=== PATIENT | female | born 1945 | race Caucasian/White ===

== ENCOUNTER 2021-12-20 09:30 | Outpatient (RCR) | payer SELFPAY ==
[2021-12-13 09:10] VITALS: BP 156/47; PULSE 81; RESP 20; TEMP 36.4; BMI 30.7
--- NOTE | 2021-12-13 12:25 | HP.PCM_ITS ---
History of Present Illness Date of Service: 12/13/21 Chief Complaint: Non healing left leg wound History of Wound: Ms. Hurley presents to the wound center following referral from her PCP due to non healing left leg wound. Sustained the wound about 3 months ago when she bumped into her dishwater. Following injury, she was seen by her PCP and started on antibiotics however, this did not help. She was also seen at the ER and had an I and D with subsequent packing of the wound with no eventual healing. Lately, she states that she has been applying bacitracin ointment daily. No significant drainage. Tested for Diabetes and this came back negative. No tobacco abuse. She feels well otherwise and denies chills, fever, nausea or change in bowel habit. She is independent of her daily activities. [facility] Medical History (Updated 12/13/21 @ 12:[address] Lena Becerra MD) Chronic wound of extremity Leg wound, left Non-healing wound of left lower extremity Home Medications esomeprazole magnesium [Nexium] 20 mg PO DAILY 12/13/21 [History Last Taken Unknown] fluticasone propionate INTRANASAL 12/13/21 [History Last Taken Unknown] Allergy/AdvReac Type Severity Reaction Status Date / Time cephalexin [From Keflex] Allergy Shortness Verified 12/13/21 09:36 of breath amoxicillin [From Augmentin] AdvReac Nausea Verified 12/13/21 09:35 clavulanic acid AdvReac Nausea Verified 12/13/21 09:35 [From Augmentin] guaifenesin [From Entex LA] AdvReac Nausea Verified 12/13/21 09:36 phenylephrine [From Entex LA] AdvReac Nausea Verified 12/13/21 09:36 phenylpropanolamine AdvReac Nausea Verified 12/13/21 09:36 [From Entex LA] Social History Smoking Status: Never smoker ROS Constitutional Constitutional: Denies fatigue, fever(s), frequent falls, headache(s) or increased appetite Eyes Eyes: Denies blindness, decreased night vision, diplopia, discharge from eye(s), exophthalmos, eye pain or floaters ENT HEENT: Denies epistaxis, facial pain, foreign body in nose, headache(s), hearing loss, hoarseness, mouth pain or nasal trauma Cardiovascular Cardiovascular: Denies chest pain with activity, claudication, cold extremities, cyanosis, dyspnea at rest, dyspnea on exertion or easily tiring during activity Respiratory/Chest Respiratory/Chest: Denies change in phlegm color, dry cough, dusky skin, dyspnea, dyspnea on exertion, excessive phlegm production or nail bed cyanosis Gastrointestinal Gastrointestinal: Denies abdominal pain, belching, chewing difficulty, coffee ground emesis, constipation, cramping, dyspepsia or dysphagia Genitourinary Genitourinary: Denies abdominal discomfort, dysuria, flank pain, hematuria or oliguria Musculoskeletal Musculoskeletal: Denies extremity pain, limited range of motion, loss of height, muscle cramps, muscle spasms or muscle weakness Integumentary Integumentary: Reports non-healing lesions; Denies changing lesions, dry skin, erythema, jaundice, lesions, nail changes or new lesions Neurologic Neurologic: Denies abnormal speech, behavior changes, burning sensations, frequent falls, headache(s), lack of coordination, loss of vision or memory loss Psychiatric Psychiatric: Denies change in appetite, cognitive impairment, confusion, depression, difficulty concentrating, hallucinations or homicidal ideation Endocrine Endocrinology: Denies excessive sweating, fatigue, flushing, heat intolerance, palpitations or polydipsia Hematologic/Lymphatic Hematologic/Lymphatic: Denies anemia, easy bleeding, easy bruising or lymphadenopathy Allergic/Immunologic Allergic/Immunologic: Denies itchy eyes, lip swelling, tongue swelling, hives, urticaria, eczemia, wheezing or asthma Vital Signs Vital Signs Vital Signs: 12/13/21 09:10 Temperature 97.5 F L Temperature Source Temporal Pulse Rate 81 Respiratory Rate 20 H Blood Pressure 156/47 H Blood Pressure Mean 83 Blood Pressure Source Monitor Weight Weight: 152 lb 1.642 oz Body Mass Index (BMI) 30.7 Physical Exam Const alert, oriented x3 and no apparent distress General Appearance: cooperative, comfortable and well kempt HEENT normocephalic, head/scalp atraumatic and hearing grossly normal bilaterally Head and Scalp: normal to inspection Face and Sinus: normal facial exam Eyes PERRL and EOMs intact bilaterally Neck full ROM General: normal visual inspection Resp normal respiratory effort and clear to auscultation bilaterally Effort and Inspection: able to speak in complete sentences Cardio regular rate, regular rhythm, S1 normal heart sound and S2 normal heart sound GI Palpation: soft Skin Wounds: wounds noted Neuro oriented x3, CN's II-XII intact bilaterally, moves all extremities and no focal motor deficits Psych mental status grossly normal Appearance: grossly normal Attitude: calm Speech: normal speech Debridement Note Debridement Note Wound debrided: Left Lower Extremity Type of Debridement: Excisional debridement Anesthesia Used: 4% Lidocaine Solution Depth: Down to and including healthy tissue and in the subcutaneous layer Percentage of wound debrided: 100 Instrument Used: 3mm curette Tissue Removed: Slough and devitalized tissue Severity: Fat Layer Exposed Amount of bleeding with debridement: Mild Bleeding Controlled with: Pressure Patient tolerated procedure: Patient tolerated procedure well Post-Debridement Measurements and Additional Note: Post-Debridement Measurements/Treatment - Nurse 1 - General Ulcer Assessment Start: 12/13/21 09:10 Freq: Status: Active Protocol: PEG Activity Type Activity Date Activity User E-Sign Co-Sign Detail Recorded Client Recorded Date Recorded By Document 12/13/21 09:10 DL [id number] 12/13/21 09:30 DL 12/13/21 09:10 - Today's Visit Information Type of service Initial Visit Arrival Mode Ambulatory Transfer Assistance None Patient Identification Verified (Name & Yes ) Patient Requires Transmission-Based No Precautions Height and Weight Height 4 ft 11 in Weight 152 lb 1.642 oz Weight in Pounds 152.1 lbs Body Mass Index (BMI) 30.7 BMI Classification Obese BSA - Alvina 1.64 Vital Signs Temperature (97.8 F-99.1 F) 97.5 F L Temperature Source Temporal Pulse Rate (60-100) 81 Pulse Location Monitor Respiratory Rate (12-18) 20 H Respiratory rate source Observation Blood Pressure (90/60-120/80) 156/47 H Blood Pressure Mean 83 Source Monitor History Since Last Visit- (Skip if this is Patient's initial visit) Left Footwear Regular Shoe Right Footwear Regular Shoe Pain Scale: 0-10 Numeric Is Patient Pain Free? Yes Lower Extremity Assessment/ Foot Assessment/ Toe Nail Assessment Left -Posterior Tibial Palpable Yes -Posterior Tibial Doppler Multiphasic -Dorsalis Pedis Palpable Yes -Dorsalis Pedis Doppler Multiphasic -Extremity Color Normal -Hair Growth on Legs No -Hair Growth on Toes No -Temperature of Extremity Warm -Capillary Refill Less than 3 Seconds -Dependent Rubor No -Blanched when Elevated No -Lipodermatosclerosis No -Thick No -Discolored No -Deformed No -Improper Length & Hygeine No Right -Posterior Tibial Palpable Yes -Posterior Tibial Doppler Multiphasic -Dorsalis Pedis Palpable Yes -Dorsalis Pedis Doppler Multiphasic -Extremity Color Normal -Hair Growth on Legs No -Hair Growth on Toes No -Temperature of Extremity Warm -Capillary Refill Less than 3 Seconds -Dependent Rubor No -Blanched when Elevated No -Lipodermatosclerosis No -Other Deformity No -Prior Foot Ulcer No -Charcot Joint No -Prior Amputation No -Thick No -Discolored No -Deformed No -Improper Length & Hygeine No Neuropathy Assessment Feet - Top Side and Bottom <Entered> (a) Communication Assessment Preferred language Maltese 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 No Able to Read Yes Able to Write Yes Communication Tools None Right Hearing Abillity Normal Left Hearing Abillity Normal Visual Assistive Devices Glasses Teaching Assessment Preferences Verbal,Written, Demonstration Barriers to Learning None Readiness To Learn Good Willingness to Engage in Self Management Med Activies Readiness to Engage in Self Management Med Activities Anxiety Level Calm Cooperation Cooperative Perception Coherent Interest in Health Problem Asks Questions Education Importance Acknowledges Need Does Patient Smoke tobacco or other No substances Smoking Status Never smoker Is Patient Diabetic No Functional Assessment Recent Decline in Ability to Perform Denies Any Declines 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 Shothole Driller to contact place of protestant No Teaching: Wound Center Discharge Instructions -Person Taught Patient,Family Dressing Your Wound -Person Taught Patient,Family *Welcome to the Wound Center -Person Taught Patient,Family (a) 1 - + WC - Nurse 1 - General Ulcer Measurement Start: 12/13/21 09:10 Freq: Status: Active Protocol: Activity Type Activity Date Activity User E-Sign Co-Sign Detail Recorded Client Recorded Date Recorded By Document 12/13/21 09:10 DL [id number] 12/13/21 09:30 DL 12/13/21 09:10 Wound Center Nurse 1 #1 L Glover -Current Size (cm) - Length 1.4 -Current Size (cm) - Width 2.8 -Current Size (cm) - Depth 0.1 -Total Square Cm 3.92 -Photo Taken Yes -Exudate Amt Small -Exudate Type Serosanguineous -Wound Margin Distinct, Outline Attached -Granulation Amt None Present (0 %) -Necrosis Amt Large (67-100%) -Necrotic Tissue Type Adherent Slough -Structure Exposed N/A -Texture (Katie-wound Skin Appearance) Localized Edema ,Scarring -Moisture (Katie-wound Skin Appearance) No Abnormality -Color (Katie-wound Skin Appearance) Erythema -Temperature (Katie-wound Skin No Abnormality Appearance) (Pt Warm) -Tenderness on Palpation (Katie-wound Yes Skin Appearance) -Ulcer Cleansing Soap and Water -Foul Odor after Cleansing No -Anesthetic Used 5% Lidocaine Gel Right Calf (cm) 39.5 Right Ankle (cm) 21 Right Foot (cm) 38.5 Left Calf (cm) 20.5 WC - Nurse 2 - General Ulcer CM Notes Start: 12/13/21 09:10 Freq: Status: Active Protocol: Activity Type Activity Date Activity User E-Sign Co-Sign Detail Recorded Client Recorded Date Recorded By Document 12/13/21 09:55 MW [id number] 12/13/21 10:03 MW 12/13/21 09:55 Wound Center Nurse 2 #1 L Glover -Time 09:55 -Correct Patient Yes -Correct Side, Site, Position Yes -Correct Procedure Yes -Procedure Performed Yes -Type of Procedure Debridement -Clinical Debridement Subcutaneous -Tissue Removed Subcutaneous -Post Debridement (cm) - Length 0.3 -Post Debridement (cm) - Width 0.6 -Post Debridement (cm) - Depth 0.7 -Total Square (Post) (cm) 0.18 -Area of Debridement (cm) - Length 0.3 -Area of Debridement (cm) - Width 0.6 -Total Square (Area) (cm) 0.18 -Tunneling No -Undermining/Tunneling No -Circular Undermining No -Wound/Ulcer Outcome Not Healed -Ulcer Cleansing Rinsed/ Irrigated with Saline -Foul Odor after Cleansing No -Bioengineered Tissue No -Bleeding Controlled with Pressure -Offloading No -Treatment Response Procedure Tolerated Well -Debridement - Subq, 1st 20sq cm Yes Pain Scale: 0-10 Numeric Is Patient Pain Free? Yes BAN - Nurse 3 - General Ulcer D/C NN Start: 12/13/21 09:10 Freq: Status: Active Protocol: Activity Type Activity Date Activity User E-Sign Co-Sign Detail Recorded Client Recorded Date Recorded By Document 12/13/21 10:23 DL [id number] 12/13/21 10:24 DL 12/13/21 10:23 Wound Care Nurse 3 #1 L Glover -Ulcer Cleansing Rinsed/ Irrigated with Saline -Foul Odor after Cleansing No -Primary Dressing Applied NonAdherent Contact Layer, Promogran -Primary Dressing Covered/Secured with Dry Gauze -Promogran 1 Left -Multi-Layered Wrap Application Multi-Layer Comp - Left ($) Pain Scale: 0-10 Numeric Is Patient Pain Free? Yes WC - Visit Discharge Discharge Condition Stable Ambulatory Status Ambulatory Transportation Private Auto Accompanied by family Charges/Coding Visit Charges Office Visits / Consults: 53069 OV L3 New Procedures Integumentary [id number]: [id number] Aria subq tissue 20 sq cm/< Assessment/Plan Assessment/Plan (1) Leg wound, left: CODE(S): S81.802A - Unspecified open wound, left lower leg, initial encounter QUALIFIERS: Encounter type: initial encounter Qualified Code(s): S81.802A - Unspecified open wound, left lower leg, initial encounter (2) Non-healing wound of left lower extremity: CODE(S): S81.802A - Unspecified open wound, left lower leg, initial encounter (3) Chronic wound of extremity: PLAN: 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 As above, measures so far have not been helpful. Debridement done as documented above, procedure was well tolerated. She reports difficulty with doing wound care herself. Apply Promogran, cover with gauze. Leave in place till Friday. 3M wrap for edema management. Change on Friday at nurse visit. Increase Protein, Vitamin C and Zinc recommended. Leg elevation and exercise as tolerated. Her questions were answered and she was advised to call with any further questions or concerns. Follow up in 1 week with me. This note was generated with 1SDK dictation software. It may contain incorrect words, spelling, and punctuation that were not noted in checking the note before signing.
[2021-12-18 14:03] VITALS: BP 123/63; PULSE 71; TEMP 36.8; BMI 30.7
[2021-12-20 09:32] VITALS: BP 164/73; PULSE 76; RESP 16; TEMP 35.5; BMI 30.7
--- NOTE | 2021-12-20 10:32 | PCM.WC.PN ---
History of Present Illness Date of Service: 12/20/21 Chief Complaint: Non healing left leg wound History of Wound: Ms. Hurley presents to the wound center following referral from her PCP due to non healing left leg wound. Sustained the wound about 3 months ago when she bumped into her dishwater. Following injury, she was seen by her PCP and started on antibiotics however, this did not help. She was also seen at the ER and had an I and D with subsequent packing of the wound with no eventual healing. Lately, she states that she has been applying bacitracin ointment daily. No significant drainage. Tested for Diabetes and this came back negative. No tobacco abuse. She feels well otherwise and denies chills, fever, nausea or change in bowel habit. She is independent of her daily activities. Progress of Wound: No new concerns at this time. Promogran has been applied with 3M wraps. Came in on Friday for a nurse visit. Subjective Subjective She denies any acute concerns. No chills, fever or feeling of unwell. Objective Data Objective Data Vital Signs: Vital Signs Temp Pulse Resp BP 96 F L 76 16 164/73 H 12/20/21 09:32 12/20/21 09:32 12/20/21 09:32 12/20/21 09:32 Oxygen Delivery Method Room Air Weight: 152 lb 1.642 oz Body Mass Index (BMI) 30.7 Charges/Coding Procedures Integumentary 111xxx-113xx: 76921 Aria subq tissue 20 sq cm/< Physical Exam Const alert, oriented x3 and no apparent distress General Appearance: cooperative, comfortable and well kempt HEENT normocephalic, head/scalp atraumatic and hearing grossly normal bilaterally Head and Scalp: normal to inspection Face and Sinus: normal facial exam Eyes PERRL and EOMs intact bilaterally Neck full ROM General: normal visual inspection Resp normal respiratory effort Effort and Inspection: able to speak in complete sentences Skin Wounds: wounds noted Neuro oriented x3, CN's II-XII intact bilaterally, moves all extremities and no focal motor deficits Psych mental status grossly normal Appearance: grossly normal Attitude: calm Speech: normal speech Debridement Note Debridement Note Wound debrided: Left lower extremity Type of Debridement: Excisional debridement Anesthesia Used: 4% Lidocaine Solution Depth: Down to and including healthy tissue Percentage of wound debrided: 100 Instrument Used: - (1 mm) Tissue Removed: Slough and devitalized tissue Severity: Fat Layer Exposed Amount of bleeding with debridement: Mild Bleeding Controlled with: Pressure Patient tolerated procedure: Patient tolerated procedure well Post-Debridement Measurements and Additional Note: Post-Debridement Measurements/Treatment WC - Nurse 1 - General Ulcer Assessment Start: 12/13/21 09:10 Freq: Status: Active Protocol: WC.LOWEXNeisha Activity Type Activity Date Activity User E-Sign Co-Sign Detail Recorded Client Recorded Date Recorded By Document 12/13/21 09:10 DL [id number] 12/13/21 09:30 DL Document 12/18/21 14:03 AK [id number] 12/18/21 14:05 AK Document 12/20/21 09:32 BMF [id number] 12/20/21 09:36 BMF 12/13/21 12/18/21 12/20/21 09:10 14:03 09:32 WC - Today's Visit Information Type of service Initial Visit Nurse-only Follow-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 ) Arrival Mode Ambulatory Ambulatory Ambulatory Transfer Assistance None None Patient Identification Verified (Name & Yes Yes Yes ) Patient Requires Transmission-Based No No No Precautions Height and Weight Height 4 ft 11 in Weight 152 lb 1.642 oz Weight in Pounds 152.1 lbs Body Mass Index (BMI) 30.7 30.7 30.7 BMI Classification Obese Obese Obese BSA - Alvina 1.64 Vital Signs Temperature (97.8 F-99.1 F) 97.5 F L 98.2 F 96 F L Temperature Source Temporal Temporal Temporal Pulse Rate (60-100) 81 71 76 Pulse Location Monitor Monitor Monitor Respiratory Rate (12-18) 20 H 16 Respiratory rate source Observation Observation Oxygen Delivery Method Room Air Blood Pressure (90/60-120/80) 156/47 H 123/63 H 164/73 H Blood Pressure Mean (mm Hg) 83 83 103 Source Monitor Monitor Monitor Position Sitting Blood Pressure Location Left Arm Comment counseled pt to f/u w/ pcp r/t bp. Have you changed medications since your No No last visit? Any new allergies or adverse reactions No No Had a fall/change in ADL's that may No No increase risk of falls Signs or symptoms of abuse and/or No No neglect since last visit Have you been in the hospital since your No No last visit? Has dressing in place as prescribed Yes No Has compression in place as prescribed Yes No Has offloadiing in place as prescribed N/A N/A Experienced any changes in pain level or No No management History Since Last Visit- (Skip if this is Patient's initial visit) Left Footwear Regular Shoe Regular Shoe Regular Shoe Right Footwear Regular Shoe Regular Shoe Regular Shoe Pain Scale: 0-10 Numeric Is Patient Pain Free? Yes Yes Yes Lower Extremity Assessment/ Foot Assessment/ Toe Nail Assessment Left -Posterior Tibial Palpable Yes -Posterior Tibial Doppler Multiphasic -Dorsalis Pedis Palpable Yes -Dorsalis Pedis Doppler Multiphasic -Extremity Color Normal -Hair Growth on Legs No -Hair Growth on Toes No -Temperature of Extremity Warm -Capillary Refill Less than 3 Seconds -Dependent Rubor No -Blanched when Elevated No -Lipodermatosclerosis No -Thick No -Discolored No -Deformed No -Improper Length & Hygeine No Right -Posterior Tibial Palpable Yes -Posterior Tibial Doppler Multiphasic -Dorsalis Pedis Palpable Yes -Dorsalis Pedis Doppler Multiphasic -Extremity Color Normal -Hair Growth on Legs No -Hair Growth on Toes No -Temperature of Extremity Warm -Capillary Refill Less than 3 Seconds -Dependent Rubor No -Blanched when Elevated No -Lipodermatosclerosis No -Other Deformity No -Prior Foot Ulcer No -Charcot Joint No -Prior Amputation No -Thick No -Discolored No -Deformed No -Improper Length & Hygeine No Neuropathy Assessment Feet - Top Side and Bottom <Entered> (a) Communication Assessment Preferred language [place] Nut 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 Operator Required No Able to Read Yes Able to Write Yes Communication Tools None Right Hearing Abillity Normal Left Hearing Abillity Normal Visual Assistive Devices Glasses Teaching Assessment Preferences Verbal,Written, Demonstration Barriers to Learning None Readiness To Learn Good Willingness to Engage in Self Management Med Activies Readiness to Engage in Self Management Med Activities Anxiety Level Calm Cooperation Cooperative Perception Coherent Interest in Health Problem Asks Questions Education Importance Acknowledges Need Does Patient Smoke tobacco or other No substances Smoking Status Never smoker Is Patient Diabetic No Functional Assessment Recent Decline in Ability to Perform Denies Any Declines Culture/Mu-Ism/Hand Ii Tube Bender Cultural/Mu-Ism Needs that may affect No Treatment Plan Would you allow our hospital marketing intelligence analyst to No meet you for the purpose of spiritual/ emotional support? Hand Ii Tube Bender to contact place of congregational No Teaching: Wound Center Discharge Instructions -Person Taught Patient,Family Dressing Your Wound -Person Taught Patient,Family *Welcome to the Wound Center -Person Taught Patient,Family (a) 1 - + WC - Nurse 1 - General Ulcer Measurement Start: 12/13/21 09:10 Freq: Status: Active Protocol: Activity Type Activity Date Activity User E-Sign Co-Sign Detail Recorded Client Recorded Date Recorded By Document 12/13/21 09:10 DL [id number] 12/13/21 09:30 DL Document 12/20/21 09:32 BM [id number] 12/20/21 09:36 BMF 12/13/21 12/20/21 09:10 09:32 Wound Center Nurse 1 #1 L Glover -Combined with other wound No -Current Size (cm) - Length 1.4 0.3 -Current Size (cm) - Width 2.8 0.4 -Current Size (cm) - Depth 0.1 0.1 -Total Square Cm 3.92 0.12 -Photo Taken Yes No -Epithelialization None Present -Tunneling No -Undermining/Tunneling No -Circular Undermining No -Exudate Amt Small None Present -Exudate Type Serosanguineous -Wound Margin Distinct, Distinct, Outline Outline Attached Attached -Granulation Amt None Present (0 None Present (0 %) %) -Slough/Fibrin Yes -Necrosis Amt Large (67-100%) Large (67-100%) -Necrotic Tissue Type Adherent Slough Eschar -Structure Exposed N/A -Texture (Katie-wound Skin Appearance) Localized Edema Assessed, ,Scarring Scarring -Moisture (Katie-wound Skin Appearance) No Abnormality Assessed -Color (Katie-wound Skin Appearance) Erythema Assessed -Temperature (Katie-wound Skin No Abnormality No Abnormality Appearance) (Pt Warm) (Pt Warm) -Tenderness on Palpation (Katie-wound Yes No Skin Appearance) -Ulcer Cleansing Soap and Water Rinsed/ Irrigated with Saline -Foul Odor after Cleansing No No -Anesthetic Used 5% Lidocaine 4% Lidocaine Gel Solution -Wound Comment(s) pt showered and removed 3m prior to visit per instruction Lower Limb Edema Present Yes Right Calf (cm) 39.5 Right Ankle (cm) 21 Right Foot (cm) 38.5 Left Calf (cm) 20.5 39.6 Left Ankle (cm) 23.5 WC - Nurse 2 - General Ulcer CM Notes Start: 12/13/21 09:10 Freq: Status: Active Protocol: Activity Type Activity Date Activity User E-Sign Co-Sign Detail Recorded Client Recorded Date Recorded By Document 12/13/21 09:55 MW [id number] 12/13/21 10:03 MW Document 12/20/21 09:53 MW [id number] 12/20/21 09:57 MW 12/13/21 12/20/21 09:55 09:53 Wound Center Nurse 2 #1 L Glover -Time 09:55 09:54 -Correct Patient Yes Yes -Correct Side, Site, Position Yes Yes -Correct Procedure Yes Yes -Procedure Performed Yes Yes -Type of Procedure Debridement Debridement -Clinical Debridement Subcutaneous Subcutaneous -Tissue Removed Subcutaneous Subcutaneous -Post Debridement (cm) - Length 0.3 0.1 -Post Debridement (cm) - Width 0.6 0.3 -Post Debridement (cm) - Depth 0.7 0.7 -Total Square (Post) (cm) 0.18 0.03 -Area of Debridement (cm) - Length 0.3 0.1 -Area of Debridement (cm) - Width 0.6 0.3 -Total Square (Area) (cm) 0.18 0.03 -Tunneling No No -Undermining/Tunneling No No -Circular Undermining No No -Wound/Ulcer Outcome Not Healed Not Healed -Ulcer Cleansing Rinsed/ Rinsed/ Irrigated with Irrigated with Saline Saline -Foul Odor after Cleansing No No -Bioengineered Tissue No No -Bleeding Controlled with Pressure Pressure -Offloading No -Type of Offloading Total Contact Cast (TCC) - Left ($) -Treatment Response Procedure Procedure Tolerated Well Tolerated Well -Debridement - Subq, 1st 20sq cm Yes Yes Pain Scale: 0-10 Numeric Is Patient Pain Free? Yes Yes WC - Nurse 3 - General Ulcer D/C NN Start: 12/13/21 09:10 Freq: Status: Active Protocol: Activity Type Activity Date Activity User E-Sign Co-Sign Detail Recorded Client Recorded Date Recorded By Document 12/13/21 10:23 DL [id number] 12/13/21 10:24 DL Document 12/18/21 14:03 AK [id number] 12/18/21 14:05 AK Document 12/20/21 10:08 PR [id number] 12/20/21 10:09 AK 12/13/21 12/18/21 12/20/21 10:23 14:03 10:08 Wound Care Nurse 3 #1 L Glover -Ulcer Cleansing Rinsed/ Soap and Water Rinsed/ Irrigated with Irrigated with Saline Saline -Foul Odor after Cleansing No No No -Negative Pressure Wound Therapy N/A N/A -Primary Dressing Applied NonAdherent Promogran Promogran Contact Layer, Promogran -Primary Dressing Covered/Secured with Dry Gauze -Promogran 1 0 0 Left -Lotion applied to leg before No compression wrap -Multi-Layered Wrap Application Multi-Layer Multi-Layer Multi-Layer Comp - Left ($) Comp - Left ($) Comp - Left ($) Vital Signs Temperature (97.8 F-99.1 F) 98.2 F Temperature Source Temporal Pulse Rate (60-100) 71 Pulse Location Monitor Blood Pressure (90/60-120/80) 123/63 H Blood Pressure Mean (mm Hg) 83 Source Monitor Pain Scale: 0-10 Numeric Is Patient Pain Free? Yes Yes Yes WC - Visit Discharge Discharge Condition Stable Stable Ambulatory Status Ambulatory Ambulatory Transportation Private Auto Private Auto Accompanied by family Medication Reconcilliation completed & No provided to patient/care provider Clinical Summary of Care Provided Yes Assessment/Plan Assessment/Plan (1) Leg wound, left: CODE(S): S81.802A - Unspecified open wound, left lower leg, initial encounter QUALIFIERS: Encounter type: initial encounter Qualified Code(s): S81.802A - Unspecified open wound, left lower leg, initial encounter (2) Non-healing wound of left lower extremity: CODE(S): S81.802A - Unspecified open wound, left lower leg, initial encounter (3) Chronic wound of extremity: PLAN: Debridement done as documented above, procedure was well-tolerated. Continue Promogran, cover with gauze. Leave in place till Friday. 3M wrap for edema management. Change on Friday at nurse visit. Increase Protein, Vitamin C and Zinc recommended. Leg elevation and exercise as tolerated. Her questions were answered and she was advised to call with any further questions or concerns. Follow up in 1 week with me. This note was generated with [employer] software. It may contain incorrect words, spelling, and punctuation that were not noted in checking the note before signing.
== END 2021-12-24 23:59 ==
LOC: WC 09:30
PROVIDERS: PCP Family Medicine; Referring Provider Family Medicine; Visit Provider Internal Medicine
DX: S81.832A Puncture wound without foreign body, left lower leg, initial encounter (principal); R60.0 Localized edema; W22.09XA Striking against other stationary object, initial encounter
CPT/HCPCS: 11042; 29445; 29581; 99203; G0463

== ENCOUNTER 2022-01-01 10:30 | Outpatient (RCR) | payer SELFPAY ==
[2021-12-25 00:49] VITALS: BP 164/73; PULSE 76; RESP 16; TEMP 35.5; BMI 30.7
[2021-12-25 13:09] VITALS: BP 146/54; PULSE 78; RESP 18; TEMP 36.3; BMI 30.7
[2022-01-01 10:48] VITALS: BP 147/59; PULSE 77; RESP 16; TEMP 36.2; BMI 30.7
--- NOTE | 2022-01-01 11:17 | PN.PCM_ITS ---
History of Present Illness Date of Service: 01/01/22 Chief Complaint: Non healing left leg wound History of Wound: Ms. Hurley presents to the wound center following referral from her PCP due to non healing left leg wound. Sustained the wound about 3 months ago when she bumped into her dishwater. Following injury, she was seen by her PCP and started on antibiotics however, this did not help. She was also seen at the ER and had an I and D with subsequent packing of the wound with no eventual healing. Lately, she states that she has been applying bacitracin ointment daily. No significant drainage. Tested for Diabetes and this came back negative. No tobacco abuse. She feels well otherwise and denies chills, fever, nausea or change in bowel habit. She is independent of her daily activities. Subjective Subjective This 76-year-old female was seen for a chronic left leg wound. Being treated by another provider notes significant improvement. She presents with a 3M 2 layer compression wrap today. She was unable to get this changed last week due to the snowstorm. Encourage she denies any constitutional symptoms any pain to the wound site and has been compliant with her treatment. past medical history: Venous insufficiency bilateral lower extremity, seasonal allergies, GERD Past surgical history: Denies Social social history: Denies any alcohol or tobacco use or any illicit substance Family history noncontributory Medications documented in chart Allergies: Penicillin guaifenesin phenylephrine phenylpropanolamine Objective Data Objective Data Vital Signs: Vital Signs Temp Pulse Resp BP 97.1 F L 77 16 147/59 H 01/01/22 10:48 01/01/22 10:48 01/01/22 10:48 01/01/22 10:48 Oxygen Delivery Method Room Air Weight: 68.993 kg Body Mass Index (BMI) 30.7 Physical Exam Narrative Vascular: Dorsalis pedis and posterior tibial pulses palpable 2 out of 4 to bilateral lower extremity. +1 pitting edema noted to bilateral lower extremity. Digital hair growth noted. Dermatologic: Healed left leg ulceration. No signs of infection. Skin is otherwise well-hydrated and intact bilateral lower extremities with no open wounds. Neurologic: Light touch protective sensation intact. Negative clonus Babinski. Musculoskeletal: Muscular strength full to bilateral lower extremity compartments, no gross deformities noted. No pain with calf squeeze. 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 ) Arrival Mode Ambulatory Ambulatory Transfer Assistance None None Patient Identification Verified (Name & Yes Yes ) Patient Requires Transmission-Based No No Precautions Height and Weight Body Mass Index (BMI) 30.7 30.7 BMI Classification Obese Obese Vital Signs Temperature (97.8 F-99.1 F) 97.4 F L 97.1 F L Temperature Source Temporal Temporal Pulse Rate (60-100) 78 77 Pulse Location Monitor Monitor Respiratory Rate (12-18) 18 16 Respiratory rate source Observation Observation Oxygen Delivery Method Room Air Blood Pressure (90/60-120/80) 146/54 H 147/59 H Blood Pressure Mean (mm Hg) 84 88 Source Monitor Monitor Position Sitting Blood Pressure Location Left Arm History Since Last Visit- (Skip if this is Patient's initial visit) Have you changed medications since your No No last visit? Any new allergies or adverse reactions No No Had a fall/change in ADL's that may No No increase risk of falls Signs or symptoms of abuse and/or No No neglect since last visit Have you been in the hospital since your No No last visit? Has dressing in place as prescribed Yes No Has compression in place as prescribed No Has offloadiing in place as prescribed N/A N/A Experienced any changes in pain level or No management Left Footwear Regular Shoe Right Footwear Regular Shoe Other Footwear PT REMOVED 3M AND SHOWERED PER INSTRUCTION PRIOR TO VISIT Pain Scale: 0-10 Numeric Is Patient Pain Free? Yes Yes BAN - Nurse 1 - General Ulcer Measurement Start: 12/25/21 13:09 Freq: Status: Active Protocol: Activity Type Activity Date Activity User E-Sign Co-Sign Detail Recorded Client Recorded Date Recorded By Document 12/25/21 13:09 DL [id number] 12/25/21 13:26 DL Document 01/01/22 10:48 [facility] [id number] 01/01/22 10:49 [facility] 12/25/21 01/01/22 13:09 10:48 Wound Center Nurse 1 #1 L Gl[place] -Combined with other wound No -Current Size (cm) - Length 0.1 -Current Size (cm) - Width 0.1 -Current Size (cm) - Depth 0.1 -Total Square Cm 0.01 -Date of Last Picture (Recall this 01/01/22 field) -Photo Taken No Yes -Epithelialization Large 67-100% -Exudate Amt None Present -Wound Margin Flat & Intact -Granulation Amt Small (1-33%) -Granulation Quality Pale -Necrosis Amt Small (1-33%) -Necrotic Tissue Type Adherent Slough -Structure Exposed N/A -Texture (Katie-wound Skin Appearance) Scarring Assessed, Scarring -Moisture (Katie-wound Skin Appearance) No Abnormality Assessed,Dry/ Scaly -Color (Katie-wound Skin Appearance) No Abnormality Assessed -Temperature (Katie-wound Skin No Abnormality No Abnormality Appearance) (Pt Warm) (Pt Warm) -Tenderness on Palpation (Katie-wound No No Skin Appearance) -Ulcer Cleansing Soap and Water Rinsed/ Irrigated with Saline -Foul Odor after Cleansing No No -Anesthetic Used 5% Lidocaine Gel Lower Limb Edema Present Yes Left Calf (cm) 39.5 42.5 Left Ankle (cm) 21.5 22.6 WC - Nurse 3 - General Ulcer D/C NN Start: 12/25/21 13:09 Freq: Status: Active Protocol: Activity Type Activity Date Activity User E-Sign Co-Sign Detail Recorded Client Recorded Date Recorded By Document 12/25/21 13:09 DL [id number] 12/25/21 13:26 DL 12/25/21 13:09 Vital Signs Temperature (97.8 F-99.1 F) 97.4 F L Temperature Source Temporal Pulse Rate (60-100) 78 Pulse Location Monitor Respiratory Rate (12-18) 18 Respiratory rate source Observation Blood Pressure (90/60-120/80) 146/54 H Blood Pressure Mean (mm Hg) 84 Source Monitor Pain Scale: 0-10 Numeric Is Patient Pain Free? Yes Wound Care Nurse 3 #1 L Glover -Ulcer Cleansing Soap and Water -Negative Pressure Wound Therapy Discontinue -Primary Dressing Applied NonAdherent Contact Layer -Other Dressing promogran -Primary Dressing Covered/Secured with Dry Gauze Left -Multi-Layered Wrap Application Multi-Layer Comp - Left ($) Treatment Response Procedure Tolerated Well WC - Visit Discharge Discharge Condition Stable Ambulatory Status Ambulatory Transportation Private Auto Assessment/Plan Assessment/Plan (1) Venous insufficiency (chronic) (peripheral): CODE(S): I87.2 - Venous insufficiency (chronic) (peripheral) PLAN: Patient examined evaluated, all findings discussed patient in detail. Detailed history and physical was performed. Patient has chronic bilateral lower extremity swelling, I recommend compression stockings, patient was given instruction to get fitted for compression stockings from drug [place] 20 to 30 mmHg. She will also continue exercise and elevation to help with edema management Patient's wounds are healed at this time. She was instructed that she can return to bathing. She will observe her legs and lower extremities for any signs of irritation or new wound formation. She was dressed in bilateral Tubigrip to help with edema management until she is able to acquire some compression stockings.
== END 2022-01-01 13:38 | disposition home or self-care (01) ==
LOC: WC 10:30
PROVIDERS: PCP Family Medicine; Referring Provider Family Medicine; Visit Provider Internal Medicine
DX: Z09 Encounter for follow-up examination after completed treatment for conditions other than malignant neoplasm (principal); I87.2 Venous insufficiency (chronic) (peripheral)
CPT/HCPCS: 29581; 99212; G0463

== ENCOUNTER → 2023-02-11 | Outpatient (CLI) | payer SELFPAY | END | disposition home or self-care (01) | PROVIDERS: PCP Family Medicine; Visit Provider Student in an Organized Health Care Education/Training Program | DX: N39.0 Urinary tract infection, site not specified (principal) | CPT/HCPCS: 87086; 87088 ==